=== PATIENT | female | born 1955 | race Caucasian/White ===

== ENCOUNTER 2024-09-12 08:54 | Day surgery (SDC) | payer MEDICARE, MEDICAID ==
[2024-09-08 14:56] LABS: BASOPHILS # (AUTO) 0.1 X10'3 (0-0.2); BASOPHILS % (AUTO) 0.8 % (0-1); EOSINOPHILS # (AUTO) 0.2 X10'3 (0-0.9); EOSINOPHILS % (AUTO) 2.8 % (0-6); LYMPHOCYTES # (AUTO) 2.4 X10'3 (1.1-4.8); MEAN CORPUSCULAR HEMOGLOBIN 28.6 PG (27.0-31.0); MEAN CORPUSCULAR HGB CONC 32.8 g/dL (33.0-36.5); MEAN PLATELET VOLUME 6.8 FL (7.4-10.4); MONOCYTES % (AUTO) 14.5 % (2-12); NEUTROPHILS # (AUTO) 3.2 X10'3 (1.8-7.7); NEUTROPHILS % (AUTO) 46.9 % (42-75); PRE OP HEMATOCRIT 47.9 % (35.0-45.0); PRE OP HEMOGLOBIN 15.7 g/dL (12.0-16.0); PRE OP PLATELET COUNT 216 X10'3 (140-440); PRE OP WHITE BLOOD COUNT 6.9 10'3 (4.8-10.8); RED CELL DISTRIBUTION WIDTH 14.2 % (11.5-14.5)
[2024-09-08 15:08] LABS: ALBUMIN 3.7 G/DL (3.4-5.0); ALKALINE PHOSPHATASE 70 IU/L (46-116); BLOOD UREA NITROGEN 9 MG/DL (7-18); BUN/CREATININE RATIO 9.9 (10.0-20.0); CALCIUM 8.7 MG/DL (8.5-10.1); CHLORIDE 103 MMOL/L (99-107); CREATININE 0.91 MG/DL (0.40-0.90); PRE OP ALT 32 U/L (30-65); PRE OP ANION GAP 5 (8-16); PRE OP AST 21 U/L (10-37); PRE OP BILIRUB, TOTAL 0.4 MG/DL (0.0-1.0); PRE OP GLUCOSE 85 MG/DL (70-104); PRE OP POTASSIUM 3.9 MMOL/L (3.4-5.1); PRE OP SODIUM 137 MMOL/L (135-145); TOTAL CARBON DIOXIDE 28.6 MMOL/L (24-32); TOTAL PROTEIN 7.3 G/DL (6.4-8.2); eGFR 62 ML/MIN
[~2024-09-12] VITALS: Ht 175.3 cm; Wt 108.0 kg
[2024-09-12] VITALS (21 sets, daily range): BP systolic 116–147; BP diastolic 64–89; PULSE 81–89; RESP 11–20; TEMP 97.7; O2SAT 92–97
[2024-09-12] MEDS: cefazolin 2gm/D5W 100mL 100 ML IV ONE (05:30)
[~2024-09-12 08:54] MED LIST: CYCL-394 PO; FLUO60TA PO; HYDR-3686 PO; LISI20TA28 PO
[2024-09-12] MEDS: famotidine 20mg tablet PO ONE (10:14)
[2024-09-12] MEDS: ringers solution, lacted 1,000 ML IV SCH (10:15)
[2024-09-12] MEDS ORDERED: BUPIVAcaine 2.5mg/ml inj 50ml vial (contains preservative) ONE (11:25)
[2024-09-12] MEDS ORDERED: LIDOcaine 1% (10mg/ml)w/preservative inj. 20ml MDV ONE (11:25)
[2024-09-12] MEDS ORDERED: sevoflurane 250ml liquid IH ONE (11:36)
[2024-09-12] MEDS ORDERED: HYDROmorphone 1 mg/ml syringe ONE (11:56)
[2024-09-12] MEDS ORDERED: morphine 2 MG/ML inj. syringe IV PRN (13:10)
[2024-09-12] MEDS ORDERED: meperidine/PF 25mg/ml syringe IV PRN ×2 (13:10)
[2024-09-12] MEDS ORDERED: proCHLORperazine 10 MG/2 ml inj IV PRN (13:10)
[2024-09-12] MEDS ORDERED: ondansetron/PF 4mg/2ml inj IV PRN (13:10)
[2024-09-12] MEDS ORDERED: morphine 4 MG/ML inj SYRINge IV PRN (13:10)
== END 2024-09-12 16:32 | disposition home or self-care (01) ==
LOC: PAS 08:54
PROVIDERS: ATTEND Surgery
DX: D05.12 Intraductal carcinoma in situ of left breast (principal); I10 Essential (primary) hypertension; E11.9 Type 2 diabetes mellitus without complications; F41.9 Anxiety disorder, unspecified; F32.A Depression, unspecified; F43.10 Post-traumatic stress disorder, unspecified; Z87.891 Personal history of nicotine dependence; Z79.899 Other long term (current) drug therapy; Z90.49 Acquired absence of other specified parts of digestive tract; Z88.8 Allergy status to other drugs, medicaments and biological substances
CPT/HCPCS: 19301; 36415; 76098; 80053; 82948; 85025; 93005; A4215; A4615; A4618; A6402; A7000; J0690; J1100; J1171; J2001; J2405; J2704; J3490; J7030; J7120; Z7506; Z7508; Z7512; Z7610; 88307; A6449

== ENCOUNTER 2025-06-29 12:23 | Outpatient (CLI) | payer MEDICARE, MEDICAID | END 2025-06-29 23:59 | disposition home or self-care (01) | LOC: LAB 12:23 | PROVIDERS: ATTEND Surgery | DX: N61.1 Abscess of the breast and nipple (principal) | CPT/HCPCS: 87070; 87075 ==